=== PATIENT | male | born 1935 | race Caucasian/White ===

== ENCOUNTER → 2019-03-28 | Outpatient (CLI) | payer OTHER ==
[~2019-03-28] MED LIST: ACETAMINOPHEN325 M1 PO; ADULT LOW DOSE81 MG PO; ASPIR 8181 MG PO; ATENOLOL 25 MG25 M1 PO; CARDURA XL4 MG PO; CARDURA4 MG PO; CLOPIDOGREL75 MG PO; COREG 12.5 MG PO; COUMADIN 5 MG TA5 M1 PO; Hydrocodone-Apap 5-325 Tablet PO; KLOR-CON 1010 MEQ PO; LASIX 40 MG TAB40 M1 PO; LIPITOR40 MG PO; LISINOPRIL20 MG PO; Lisinopril 10 Mg Tablet PO; MULTIVITAMINS PO; Milk Of Magnesia Conc. PO; PHISOHEX148 ML TP; Senna-Time S Tablet PO; TOPROL XL50 MG PO
--- NOTE | 2019-03-28 11:00 | 2DMMODE ---
[facility] [place] [address] 2 D/M-MODE ECHOCARDIOGRAM Name: LUISITO GREENE Room #: REG [facility]#: [id number] Admission: 03/28/19 Attend Phys: Josiah Chin Discharge: Date of : 35 Report #: [id number] THIS REPORT FOR: //name// APPROVED REPORT Study performed: 03/28/2019 10:10:07 EXAM: Comprehensive 2D, Doppler, and color-flow Echocardiogram Patient Location: Out-Patient Status: routine BSA: 1.83 HR: 96 bpm BP: 116/74 mmHg Rhythm: Irregular Indications Dyspnea Hx: Aortic valve replacement. 2D Dimensions RVDd: 47.20 mm IVSd: 13.00 (7-11mm) LVDd: 47.07 mm PWd: 12.11 (7-11mm) Ascending Ao: 32.75 (22-36mm) LVDs: 38.64 (25-40mm) Aortic Root: 31.02 mm Volumes Left Atrial Volume (Systole) Single Plane 4CH: 77.53 mL Single Plane 2CH: 145.10 mL LA ESV Index: 63.00 mL/m2 Aortic Valve AoV Peak Presley.: 4.33 m/s AO Peak Gr.: 75.00 mmHg LVOT Max P.10 mmHg AO Mean Gr.: 46.21 mmHg AO V2 Mean: 3.23 m/s LVOT Max V: 0.88 m/s AO V2 VTI: 85.77 cm Mitral Valve MV Decel. Time: 264.19 ms MV PHT: 77.77 ms MVA (PHT): 2.83 cm2 [facility] [place] [address] 2 D/M-MODE ECHOCARDIOGRAM Name: LUISITO GREENE Room #: REG [facility]#: [id number] Admission: 03/28/19 Attend Phys: Josiah Chin Discharge: Date of : 35 Report #: [id number] Pulmonary Valve PV Peak Presley.: 0.51 m/s PV Peak Gr.: 1.05 mmHg Tricuspid Valve TR Peak Presley.: 4.12 m/s RAP Estimate: 10.00 mmHg TR Peak Gr.: 68.00 mmHg PA Pressure: 78.00 mmHg Left Ventricle The left ventricle is normal size. Mild concentric left ventricular hypertrophy. Left ventricular systolic function is mild to moderately decreased. LVEF is 40-45%. This study is not technically sufficient to allow evaluation of the LV diastolic function. Right Ventricle Right ventricle is dilated. Right ventricle is moderately hypokinetic. Atria Left atrium is severely dilated. Right atrium is mildly dilated. Aortic Valve Bioprosthetic aortic valve is present. Severe stenosis with a peak gradient of 75mmHg and a mean of 46mmHg. Mitral Valve Mitral valve leaflets are heavily thickened and calcified. Moderate mitral annular calcification. Severe mitral regurgitation. Mild to moderate mitral stenosis. Mean pressure gradient of 7-8mmHg. Tricuspid Valve The tricuspid valve is normal in structure. Mild to moderate tricuspid regurgitation. Severe pulmonary hypertension with an estimated PAP of 75-80mmHg. Pulmonic Valve The pulmonary valve is normal in structure. Mild pulmonic regurgitation. Great Vessels The aortic root is normal in size. The ascending aorta is normal in size. IVC is normal in size and collapses <50% with inspiration. [facility] [place] [address] 2 D/M-MODE ECHOCARDIOGRAM Name: LUISITO GREENE Room #: REG [facility]#: [id number] Admission: 03/28/19 Attend Phys: Josiah Chin Discharge: Date of : 35 Report #: [id number] Pericardium Large left and right pleural effusions noted. <Conclusion> The left ventricle is normal size. LVEF is 40-45%. Right ventricle is dilated. Right ventricle is moderately hypokinetic. Left atrium is severely dilated. Right atrium is mildly dilated. Bioprosthetic aortic valve is present. Severe stenosis with a peak gradient of 75mmHg and a mean of 46mmHg. Mitral valve leaflets are heavily thickened and calcified. Moderate mitral annular calcification. Severe mitral regurgitation. Mild to moderate mitral stenosis. Mean pressure gradient of 7-8mmHg. The pulmonary valve is normal in structure. Mild pulmonic regurgitation. Large left and right pleural effusions noted. <ELECTRONICALLY SIGNED> By: Josiah Bruno MD 03/28/19 1100 1100 1100 Josiah Bruno MD /INF
== END ==
LOC: NUC 08:10
DX: I08.8 Other rheumatic multiple valve diseases (principal); I70.203 Unspecified atherosclerosis of native arteries of extremities, bilateral legs; Z95.2 Presence of prosthetic heart valve

== ENCOUNTER 2019-04-13 09:45 | Observation (INO) | payer OTHER ==
[~2019-04-13] VITALS: Ht 172.7 cm; Wt 75.7 kg
--- NOTE | ~2019-04-13 | D ---
[facility] [place] [address] DISCHARGE SUMMARY Name: LUISITO GREENE Room #: 201-P [facility] Thierno Palacio#: [id number] Admission: 04/13/19 Attend Phys: Josiah Bruno Discharge: 04/14/19 Date of : 35 Report #: [id number] THIS REPORT FOR: //name// CC: Josiah Yeager DATE OF SERVICE: 04/14/2019 ADMITTING DIAGNOSES: 1. Coronary artery disease. 2. Peripheral vascular disease with symptomatic claudication. PROCEDURES PERFORMED: 1. Left heart catheterization. 2. Percutaneous revascularization of the right femoral artery. DISCHARGE MEDICATIONS: Aspirin 325 mg daily, clopidogrel 75 mg daily, metoprolol 25 mg daily. Remainder of home meds. FOLLOWUP: 1. Dr. Gordy Patton of Cardiothoracic Surgery at [facility] on Thursday. 2. Dr. Dixon Rosenbaum as per his orders. 3. Dr. Bruno post revascularization. BRIEF CLINICAL HISTORY: See history and physical in the chart. HOSPITAL COURSE: The patient was admitted to the hospital and underwent uncomplicated lower extremity angiogram and intervention as described in the chart. He subsequently underwent cardiac catheterization in preparation of TAVR, but the angiography demonstrated high-grade distal left main requiring either open revascularization or high risk stenting in the face of significant (0.6 cm square) aortic prosthetic valve restenosis. It was felt that surgical revascularization opinion was appropriate and the patient and family wanted to go to [facility] In view of this, this was arranged. He was allowed to ambulate without any significant destabilization or issues from his puncture sites. His symptoms of shortness of breath was still present. We did discuss with spouse and the patient the high risk of significant left main disease and they were instructed not to do any heavy activity or straining until seen by surgeon for revascularization. They did voice understanding. He is being discharged to home in stable condition to follow up as stated above with the previously mentioned medical regimen. By: 1517 1552 Josiah Bruno MD /nt
[~2019-04-13 09:45] MED LIST changes: -ASPIR 8181 MG PO; -CLOPIDOGREL75 MG PO
[2019-04-13 10:33] VITALS: BP 135/85
[2019-04-13 10:35] LABS: HEMATOCRIT 44.7 % (42.0-52.0); HEMOGLOBIN 14.7 gm/dL (14.0-18.0); MCV 90.9 fL (80.0-100.0); RBC 4.91 mil/uL (4.50-6.00); RDW 14.1 % (10.5-14.5); WBC 7.2 thou/uL (4.0-11.0)
[2019-04-13 10:42] LABS: CALCIUM 9.9 mg/dL (8.5-10.1); CREATININE 1.1 mg/dL (0.7-1.3); POTASSIUM 4.9 mmol/L (3.5-5.1)
--- NOTE | 2019-04-13 12:34 | EKG ---
[place] [address] [facility] [place] [address] ELECTROCARDIOGRAM REPORT Name: LUISITO GREENE Room #: [facility]#: [id number] Admission: 04/13/19 Attend Phys: Josiah Bruno Discharge: Date of : 35 Report #: [id number] THIS REPORT FOR: //name// [facility] Test Date: 2019-04-13 Test Time: 10:36:05 Pat Name: LUISITO LIAOMINGS Department: Room: Gender: T Rail Turner: Neo BRIONES : 1935 Requested By: Josiah Bruno Order Number: [id number] MD: Rusty Jerry Measurements Intervals Arlee Rate: 94 P: 0 AK: 213 QRS: 45 QRSD: 97 T: 125 QT: 378 QTc: 473 Interpretive Statements Sinus rhythm Multiple ventricular premature complexes Low voltage, extremity leads LVH with secondary repolarization abnormality Anterior Q waves, possibly due to LVH Compared to ECG 07/24/2011 07:40:32 Electronically Signed On 04-13-2019 12:34:04 CIRCUS HAND by Rusty Jerry [email or web address] <ELECTRONICALLY SIGNED> By: Rusty Jerry MD 04/13/19 1234 1036 1036 Rusty Jerry MD /EPI
[2019-04-13 18:00] VITALS: BP 153/96
[2019-04-13 18:15] VITALS: BP 139/91
[2019-04-13 18:30] VITALS: BP 161/100
[2019-04-13 19:00] VITALS: BP 147/99
[2019-04-13 19:19] VITALS: BP 149/91
--- NOTE | 2019-04-13 19:56 | NUR ---
PT. ARRIVED AROUND 1800; PT. AOX4; ON BED REST FOR 6H; HEMOSTASIS AT 1730; NO HEMATOMA NOTICED OVER L. SIDE GROIN WHEN TRANSFER CARE TO CCU; NO C/O PAIN; PULSES 2/1; POST CATH WITH VS CHARGED; SA ON THE MONITOR; EDUCATED ABOUT REMAINING ON BED FOR 6H; ST. UNDERSTANDING; ASSESSMENT CHARGED; PASSED ON REPORT;
[2019-04-14 00:15] VITALS: BP 115/92
--- NOTE | 2019-04-14 02:59 | NUR ---
ASSUMED CARE OF PATIENT AT 1900. VSS, AFEBRILE. LEFT GROIN SITE C/D/I. DENIES PAIN. RESTING IN BED, USES URINAL NEEDED. POC GOALS ESTABLISHED, PROGRESSING WELL.
[2019-04-14 04:45] VITALS: BP 134/89
[2019-04-14 05:54] LABS: HEMATOCRIT 41.7 % (42.0-52.0); HEMOGLOBIN 13.6 gm/dL (14.0-18.0); MCHC 32.7 g/dL (28.0-37.0); MCV 91.7 fL (80.0-100.0); RBC 4.54 mil/uL (4.50-6.00); RDW 14.4 % (10.5-14.5); WBC 6.7 thou/uL (4.0-11.0)
[2019-04-14 06:12] LABS: CALCIUM 9.2 mg/dL (8.5-10.1); POTASSIUM 4.1 mmol/L (3.5-5.1)
[2019-04-14 08:07] VITALS: BP 138/78
[2019-04-14 11:29] VITALS: BP 149/92
[2019-04-14] MEDS ORDERED: ASPIR 8181 MG PO (14:55)
[2019-04-14] MEDS ORDERED: CLOPIDOGREL75 MG PO (14:55)
[2019-04-14 15:54] VITALS: BP 149/92
--- NOTE | 2019-04-15 16:27 | CATHLAB ---
[facility] [place] [address] INVASIVE PROCEDURE REPORT Name: LUISITO GREENE Room #: 201-P [facility]#: [id number] Admission: 04/13/19 Attend Phys: Josiah Chin Discharge: 04/14/19 Date of : 35 Report #: [id number] THIS REPORT FOR: //name// APPROVED REPORT Study performed: 04/13/2019 16:39:09 Patient Details Patient Status: Out-Patient Room #: The patient is a 83 year-old male Event Personnel Josiah Bruno MD, Hany Rene RN, Blanca Hyde, Mandi Bender RTR Scrub Procedures Performed Left Heart Cath w/or w/o Coronaries [id number] [facility] [address] Initial Mod Sed Same Phys/QHP 5y 563800, supervision of conscious sedation Indication Dyspnea, Valvular heart disease Risk Factors Arterial Hypertension, Peripheral Vascular Disease, Valvular heart disease status post bioprosthetic aortic valve Procedure Narrative A PINNACLE 6FR Sheath #[id number] sheath was inserted into the LFA^. Coronary angiography was performed using coronary diagnostic catheters. The right coronary system was accessed and visualized with a JR4 catheter. The left coronary system was accessed and visualized with a JL4 catheter. A hematoma occurred. Intraoperative Conscious Sedation Sedation start time: 16:34 Case end Time: 17:35 Fentanyl 50 mcg Versed 2 mg Fluoro Time: 1.58 minutes Dose: DAP 3218.00 cGycm2 234 mGy Contrast Type and Amount: Omnipaque 35 ml Coronary Angiography The patient's coronary anatomy is right dominant. [facility] [place] [address] INVASIVE PROCEDURE REPORT Name: LUISITO GREENE Room #: 201-P [facility]#: [id number] Admission: 04/13/19 Attend Phys: Josiah Chin Discharge: 04/14/19 Date of : 35 Report #: [id number] Diagnostic Cath Left Main Left main is normal origin and moderate to large caliber proceeds bifurcating into left into the descending left circumflex. There is a distal eccentric 80% to 90% stenosis identified of the left main. The remainder of the left main is without significant high-grade lesions LAD Moderate caliber vessel giving rise to a first septal and first diagonal branch. The LAD then continues in the anterior interventricular sulcus towards the apex terminating the posterior aspect of the ventricle. There is mild luminal irregularities noted throughout its course without any significant high-grade lesions Diagonal 1 Small-caliber vessel with irregularities noted but no high-grade obstructions of present courses along the anterolateral wall three fourths of the way into the left ventricle. Circumflex Moderate caliber vessel which gives rise to an early marginal branch or ramus intermedius. This vessel is of moderate caliber only luminal irregularities noted no high-grade lesions present. The circumflex proper then continues on giving rise to posterior lateral wall marginal branch and a high-grade lesions but only luminal irregularities. The terminal portion of the circumflex consists of a small caliber vessel with diffuse mild to moderate irregularities present terminating in the posterior atrioventricular groove OM1 Moderate caliber vessel without significant high-grade lesions present. OM2 Small to moderate caliber vessel with only luminal irregularities present Right Coronary Moderate caliber vessel of normal origin coursing in the AV groove posterior giving rise to a right atrial right ventricular branches. Then continues in the cardiovascular heart rate small posterior descending artery originates per the posterior circulation consists of small posterior wall branches without high-grade lesions but with the evidence of luminal irregularities noted R PDA Small-caliber vessel without significant high-grade lesions Brother pursue be an eccentric ostial stenosis which does not appear to be flow-limiting Left Ventriculography Left Ventriculography was not performed. Hemodynamics The aortic pressure is 157/99 mmHg with a mean of 124 mmHg. [facility] [address] [place] [address] INVASIVE PROCEDURE REPORT Name: LUISITO GREENE Room #: 201-P [facility].#: [id number] Admission: 04/13/19 Attend Phys: Josiah Chin Discharge: 04/14/19 Date of : 35 Report #: [id number] Conclusion 1. Coronary artery disease severe distal left main stenosis 2. Abnormal urine and accelerated limited and does not pressures 3. Fluoroscopic evidence of prior bioprosthetic aortic valve (valve was not crossed due to presence of data by echo cardiographic means) Recommendations Valve Surgery CABG <ELECTRONICALLY SIGNED> By: Josiah Bruno MD 04/15/19 1626 1626 1626 Josiah Bruno MD /INF
== END 2019-04-14 16:12 | disposition home or self-care (01) ==
LOC: CATH 09:45 → 2N 18:44 → CATH 18:45 → 2N 18:45 → CATH 20:59 → ENTRNSPT 04-14 16:01 → 2N 04-14 16:12
PROVIDERS: Nuclear Medicine Nuclear Cardiology; ADMIT Internal Medicine
DX: I25.10 Atherosclerotic heart disease of native coronary artery without angina pectoris (principal); I73.89 Other specified peripheral vascular diseases; Z79.899 Other long term (current) drug therapy; Z79.82 Long term (current) use of aspirin